=== PATIENT | female | born 1950 | race Caucasian/White ===

== ENCOUNTER 2016-12-12 17:38 | Emergency (ER) | payer OTHER ==
[~2016-12-12] VITALS: Ht 165.1 cm; Wt 78.0 kg
[~2016-12-12 17:38] MED LIST: ARIP20TA7; ASPI325T4; BENA5TAB2; CARV3.1260; CLOP75TA19; FLUO20CA22 PO; LORA-408; METF500T4 PO; SIMV40TA2
[2016-12-12 17:47] VITALS: Ht 165.1 cm; Wt 78.0 kg
[2016-12-12] MEDS ORDERED: FUROSEMIDE 40 MG INJ IV STA (23:27)
[2016-12-12 23:40] VITALS: TEMP 98.4
[2016-12-12 23:45] LABS: AADO2 Arterial 36.8 mmHg (7.0-24.0); Arterial Base Excess 0 mmol/L (-3.0-3); Arterial COHb 0.3 % (0.0-3.0); Arterial Fraction of Oxyhgb 92.5 % (93.0-99.0); Arterial HCO3 24.3 mmol/L (22.0-26.0); Arterial MetHb 0.2 % (0.0-1.5); Arterial Total Hemglobin 13.3 g/dl (12.0-18.0); MODE ROOM AIR
[2016-12-13 00:09] LABS: BASOPHIL # 0.1 10^3/ul (0.0-0.1); BASOPHILS % 0.6 % (0.0-2.0); EOSINOPHILS # 0.2 10^3/ul (0.0-0.5); EOSINOPHILS % 1.9 % (0.0-7.0); HEMATOCRIT 39.1 % (37.0-47.0); HEMOGLOBIN 12.4 g/dl (12.0-16.0); LYMPHOCYTES # 2.1 10^3/ul (0.8-2.9); LYMPHOCYTES % 26.3 % (15.0-51.0); MEAN CORPUSCULAR HGB CONC 31.7 g/dl (32.0-37.0); MEAN CORPUSCULAR VOLUME 91.6 fl (82.0-101.0); MEAN PLATELET VOLUME 10.2 fl (7.4-10.4); MONOCYTE # 0.6 10^3/ul (0.3-0.9); MONOCYTES % 7.6 % (0.0-11.0); NEUTROPHILS % 63.2 % (39.0-77.0); PLATELET COUNT 275 10^3/UL (140-415); RED BLOOD COUNT 4.27 10^6/ul (4.20-5.40); RED CELL DISTRIBUTION WIDTH 13.7 % (11.5-14.5); WHITE BLOOD COUNT 7.9 10^3/ul (4.8-10.8)
--- NOTE | 2016-12-13 00:11 | RADRPT ---
PROCEDURE: XR Chest. CLINICAL INDICATION: Dyspnea. TECHNIQUE: Single frontal view of the chest. COMPARISON: 01/31/2010. FINDINGS: Cardiomegaly and atherosclerotic calcifications in the thoracic aorta. New mild pulmonary mass conge stion and mild bibasilar atelectasis versus airspace disease with small pleural effusions. No signs of pneumothorax are seen. The osseous structures and soft tissues are unremarkable. IMPRESSION: New mild failure. RPTAT: [facility] Physician Jim Date Time Electronically viewed and signed by Physician Jim on 12/13/2016 00:11 RS/
[2016-12-13 00:29] LABS: ALBUMIN 3.8 g/dl (3.3-4.9); ALBUMIN/GLOBULIN RATIO 1.22; BILIRUBIN,INDIRECT 0.3 mg/dl (0-1.1); BILIRUBIN,TOTAL 0.3 mg/dl (0.2-1.3); CREATININE 0.78 mg/dl (0.44-1.00); POTASSIUM 4.6 mmol/L (3.5-5.1); TOTAL PROTEIN 6.9 g/dl (6.1-8.1)
[2016-12-13 00:41] LABS: TROPONIN-I 0.025 ng/ml (0.00-0.12)
[2016-12-13 00:43] LABS: INR 1.1; PROTIME 14.2 Sec (12.2-14.2); PT RATIO 1.1
--- NOTE | 2016-12-13 01:26 | ERD ---
ER Documentation Chief Complaint Date/Time DATE: 12/13/16 TIME: 01:25 Chief Complaint SOB, BILATERAL EDEMA [id number], SENT FROM PMD HPI This is a 66-year-old female shortness with bilateral edema for a week. March PMD for further evaluation. Denies any chest pain. Shortness breath is mild and only on exertion. No fevers no chills no nausea no vomiting. No chest pain no palpitations. No other current complaints. ROS All systems reviewed and are negative except as per history of present illness. Medications Home Meds Reported Medications Lorazepam (Ativan) 1 Mg Tablet 02/15/10 Aripiprazole* (Abilify*) 20 Mg Tablet 02/15/10 Simvastatin* (Zocor*) 40 Mg Tablet TAKE 1 and 1/2 TABLETS BY MOUTH EVERY DAY 02/15/10 Carvedilol* (Carvedilol*) 3.125 Mg Tablet 02/15/10 Benazepril Hcl* (Benazepril Hcl*) 5 Mg Tablet 02/15/10 Discontinued Reported Medications Metformin* (Glucophage*) 500 Mg Tab, 500 MG PO BID 02/18/11 Fluoxetine Hcl* (Fluoxetine Hcl*) 20 Mg Capsule, 20 MG PO DAILY 02/18/11 Clopidogrel Bisulfate (Plavix) 75 Mg Tablet 02/15/10 Aspirin (Aspirin Lite-Coat) 325 Mg Tablet 02/15/10 Allergies Allergies: Coded Allergies: No Known Allergy (Unverified , 12/13/16) PMhx/Soc History of Surgery: Yes (L BREAST [id number], HEART STENTS ) Anesthesia Reaction: No Hx Neurological Disorder: No Hx Respiratory Disorders: No Hx Cardiac Disorders: Yes (2009 STENTS) Hx Psychiatric Problems: Yes (MANIC DEPRESSIVE, SCHIZOPHRENIC) Hx Miscellaneous Medical Probl: No Hx Alcohol Use: No Hx Substance Use: No Hx Tobacco Use: No Smoking Status: Never smoker Physical Exam Vitals Vital Signs Date Time Temp Pulse Resp B/P Pulse Ox O2 Delivery O2 Flow Rate FiO2 12/12/16 23:54 3.0 12/12/16 23:40 98.4 94 18 150/99 100 Room Air 12/12/16 17:47 98.9 103 22 141/91 96 Physical Exam Const: [] Head: Atraumatic Eyes: Normal Conjunctiva ENT: Normal External Ears, Nose and Mouth. Neck: Full range of motion..~ No meningismus. Resp: Clear to auscultation bilaterally Cardio: Regular rate and rhythm, no murmurs Abd: Soft, non tender, non distended. Normal bowel sounds Skin: No petechiae or rashes Back: No midline or flank tenderness Ext: No cyanosis, or edema Neur: Awake and alert Psych: Normal Mood and Affect Result Diagram: 12/12/16 2345 12/12/16 2345 Results 24 hrs Laboratory Tests Test 12/12/16 23:27 12/12/16 23:45 Blood Gas Specimen Source Blood arterial Arterial Blood Date Drawn 12/12/2016 11:35:46 PM Arterial Blood pH (Temp corrected) 7.421 Arterial Blood pCO2 (Temp correct) 38.2mmhg Arterial Blood pO2 (Temp corrected) 67.2mmHG Arterial Blood HCO3 24.3mmol/L Arterial Blood Base Excess 0mmol/L Arterial Blood Oxygen Saturation 93.0mmHG Caesar Test N/A Arterial Blood Gas Puncture Site Right Brachial Arterial Blood Carboxyhemoglobin 0.3% Arterial Blood Methemoglobin 0.2% Blood Gas A-a O2 Differential 36.8mmHg Oxyhemoglobin Percent 92.5% Total Hemoglobin 13.3g/dl Blood Gas Temperature 37.0C Blood Gas Modality ROOM AIR FiO2 21.0% Blood Gas Notified Whom KM Blood Gas Notified Time 12/12/2016 11:45:13 PM White Blood Count 7.910^3/ul Red Blood Count 4.2710^6/ul Hemoglobin 12.4g/dl Hematocrit 39.1% Mean Corpuscular Volume 91.6fl Mean Corpuscular Hemoglobin 29.0pg Mean Corpuscular Hemoglobin Concent 31.7g/dl Red Cell Distribution Width 13.7% Platelet Count 99790^3/UL Mean Platelet Volume 10.2fl Neutrophils % 63.2% Lymphocytes % 26.3% Monocytes % 7.6% Eosinophils % 1.9% Basophils % 0.6% Nucleated Red Blood Cells % 0.0/100WBC Neutrophils # (Manual) 5.010^3/ul Lymphocytes # 2.110^3/ul Monocytes # 0.610^3/ul Eosinophils # 0.210^3/ul Basophils # 0.110^3/ul Nucleated Red Blood Cells # 0.010^3/ul Prothrombin Time 14.2Sec Prothrombin Time Ratio 1.1 INR International Normalized Ratio 1.10 Activated Partial Thromboplast Time 29.0Sec Sodium Level 135mmol/L Potassium Level 4.6mmol/L Chloride Level 102mmol/L Carbon Dioxide Level 26mmol/L Anion Gap 12 Blood Urea Nitrogen 16mg/dl Creatinine 0.78mg/dl Glucose Level 293mg/dl Calcium Level 9.0mg/dl Total Bilirubin 0.3mg/dl Direct Bilirubin 0.00mg/dl Indirect Bilirubin 0.3mg/dl Aspartate Amino Transf (AST/SGOT) 53IU/L Alanine Aminotransferase (ALT/SGPT) 69IU/L Alkaline Phosphatase 92IU/L Troponin I 0.025ng/ml B-Type Natriuretic Peptide 5040PG/ML Total Protein 6.9g/dl Albumin 3.8g/dl Globulin 3.10g/dl Albumin/Globulin Ratio 1.22 Current Medications Medications (Trade) Dose Ordered Sig/George Route PRN Reason Start Time Stop Time Status Last Admin Dose Admin Furosemide (Lasix) 40 mg ONCE STAT IV 12/12/16 23:27 12/12/16 23:29 DC 12/13/16 00:16 Procedures/MDM EKG: Rate/Rhythm: [Normal Sinus Rhythm] QRS, ST, T-waves: [No changes consistent w/ acute ischemia] Impression: [No evidence of ischemia or arrhythmia] Chest X-ray 1V Interpreted by me: Soft Tissue: No acute abnormalities Bones: No acute abnormalities Mediastinum/Cardiac Silhouette/Lungs: Mild increased interstitial fluid markings. Impression: Mild CHF Patient's respiratory status has stabilized while in the department and is appropriate for outpatient work up. Exam and work up not consistent w/ impending respiratory failure or cardiovascular collapse. Patient was diuresed here with Lasix. Will be discharged home on the latest prescription for Lasix. I spoke to Dr. Garcia who is on-call for the [facility] and he will set up outpatient cardiology for the patient. Departure Diagnosis: Primary Impression: CHF (congestive heart failure) Congestive heart failure type: unspecified congestive heart failure type Congestive heart failure chronicity: unspecified congestive heart failure chronicity Qualified Code: I50.9 - Congestive heart failure, unspecified congestive heart failure chronicity, unspecified congestive heart failure type Condition: Stable NICOLASA SHIPLEY Dec 13, 2016 01:26
[2016-12-13] MEDS ORDERED: FURO-109 PO (01:28)
[2016-12-13] MEDS ORDERED: ASPI-664 PO (01:40)
[2016-12-13 02:25] VITALS: BP 137/77; PULSE 89; RESP 20
== END 2016-12-13 02:30 | disposition home or self-care (01) ==
LOC: E/R 17:38
DX: I50.9 Heart failure, unspecified (principal); Z79.01 Long term (current) use of anticoagulants; Z79.82 Long term (current) use of aspirin; Z79.84 Long term (current) use of oral hypoglycemic drugs; Z98.61 Coronary angioplasty status
CPT/HCPCS: 36415; 36600; 71010; 80053; 82803; 83880; 84484; 85025; 85610; 85730; 93005; 96374; J1940; Z7502; Z7610

== ENCOUNTER 2017-06-17 13:03 | Inpatient (IN) | END 2017-06-19 19:35 | disposition home health service (06) | DRG 281 ==

== ENCOUNTER 2017-06-30 06:42 | Emergency (ER) | END 2017-06-30 15:12 | disposition home or self-care (01) ==